=== PATIENT | female | born 1985 | race Asian ===

== ENCOUNTER 2022-01-16 08:59 | Day surgery (SDC) | payer OTHER ==
[~2022-01-16] VITALS: Ht 162.6 cm; Wt 54.9 kg
[~2022-01-16 08:59] MED LIST: LIDOCAINE 2% 100MG/5ML SDV (FOR ANES.) As Ordered ONE; MIDAZOLAM INJ 2MG/2ML VIAL (J2250 PER 1MG) As Ordered ONE; ONDANSETRON 4MG 2ML VIAL As Ordered ONE; dexameTHASONE 4 MG/ML 1ML VIAL (J1100 PER 1MG) As Ordered ONE; fentaNYL 100 MCG/2 ML INJECTION As Ordered ONE; propofoL 200 MG/20 ML VIAL As Ordered ONE
[2022-01-16] MEDS ORDERED: CIPRODEX OTIC SUSP 7.5ML As Ordered ONE (09:02)
[2022-01-16] MEDS ORDERED: SM N0.65 (09:28)
[2022-01-16] MEDS ORDERED: OMEP1CAP73 PO (09:28)
[2022-01-16] MEDS ORDERED: FLUO-96 PO (09:28)
[2022-01-16] MEDS ORDERED: FLON1SPR (09:28)
[2022-01-16] MEDS ORDERED: DOXY100C3 PO (09:28)
[2022-01-16] MEDS ORDERED: HYDR-3363 PO (09:28)
[2022-01-16] MEDS ORDERED: LR 1,000 ML IV SCH ×2 (10:00→10:40)
[2022-01-16] MEDS ORDERED: propofoL 200 MG/20 ML VIAL As Ordered ONE (10:19)
[2022-01-16] MEDS ORDERED: KETOROLAC 60MG 2ML VIAL As Ordered ONE (10:29)
[2022-01-16] MEDS ORDERED: fentaNYL 100 MCG/2 ML INJECTION IV PRN (10:40)
[2022-01-16] MEDS ORDERED: oxyCODONE 5MG TAB PO PRN (10:40)
[2022-01-16] MEDS ORDERED: HYDROMORPHONE HCL 0.5 MG/ 0.5 ML SYRINGE (J1170 PER 1) IV PRN (10:40)
[2022-01-16] MEDS ORDERED: ONDANSETRON 4MG 2ML VIAL IV PRN (10:40)
[2022-01-16] MEDS ORDERED: flumazeniL 0.5 MG/5 ML VIAL As Ordered ONE (10:42)
[2022-01-16 11:55] VITALS: BP 128/74
== END 2022-01-16 12:06 | disposition home or self-care (01) ==
LOC: M SDC 08:59
PROVIDERS: ATTEND Otolaryngology
DX: H69.83 Other specified disorders of Eustachian tube, bilateral (principal); H65.23 Chronic serous otitis media, bilateral; K21.9 Gastro-esophageal reflux disease without esophagitis; F41.9 Anxiety disorder, unspecified; F32.A Depression, unspecified; Z79.899 Other long term (current) drug therapy
CPT/HCPCS: 69436; 81025; J1100; J1885; J2250; J2405; J3010

== ENCOUNTER → 2022-08-08 | Outpatient (CLI) | payer OTHER ==
[~2022-08-08] MED LIST changes: +DOXY100C3 PO; +FLON1SPR; +FLUO-96 PO; +HYDR-3363 PO; -LIDOCAINE 2% 100MG/5ML SDV (FOR ANES.) As Ordered ONE; -MIDAZOLAM INJ 2MG/2ML VIAL (J2250 PER 1MG) As Ordered ONE; +OMEP1CAP73 PO; -ONDANSETRON 4MG 2ML VIAL As Ordered ONE; +SM N0.65; -dexameTHASONE 4 MG/ML 1ML VIAL (J1100 PER 1MG) As Ordered ONE; -fentaNYL 100 MCG/2 ML INJECTION As Ordered ONE; -propofoL 200 MG/20 ML VIAL As Ordered ONE
== END ==
LOC: M RAD 09:01
PROVIDERS: ATTEND Student in an Organized Health Care Education/Training Program
DX: Z30.431 Encounter for routine checking of intrauterine contraceptive device (principal); N83.01 Follicular cyst of right ovary

== ENCOUNTER → 2022-09-27 | Outpatient (CLI) | payer OTHER ==
[~2022-09-27] MED LIST changes: +PROHANCE 279.3MG/ML 15ML VIAL As Ordered ONE
== END ==
LOC: M RAD 14:49
PROVIDERS: ATTEND Student in an Organized Health Care Education/Training Program
DX: R51.9 Headache, unspecified (principal)
CPT/HCPCS: 70544; 70553; A9576

== ENCOUNTER 2022-10-04 09:25 | Day surgery (SDC) | payer OTHER ==
[~2022-10-04] VITALS: Ht 162.6 cm; Wt 56.0 kg
[~2022-10-04 09:25] MED LIST changes: -PROHANCE 279.3MG/ML 15ML VIAL As Ordered ONE
[2022-10-04] MEDS ORDERED: LR 1,000 ML IV SCH (09:50)
[2022-10-04] MEDS ORDERED: CIPRODEX OTIC SUSP 7.5ML As Ordered ONE (11:09)
[2022-10-04] MEDS ORDERED: MIDAZOLAM INJ 2MG/2ML VIAL As Ordered ONE (11:13)
[2022-10-04] MEDS ORDERED: fentaNYL 100 MCG/2 ML INJECTION As Ordered ONE (11:13)
[2022-10-04] MEDS ORDERED: ONDANSETRON 4MG 2ML VIAL As Ordered ONE (11:13)
[2022-10-04] MEDS ORDERED: ACETAMINOPHEN 1000MG 100ML IV BAG As Ordered ONE (11:13)
[2022-10-04] MEDS ORDERED: LIDOCAINE 2% 100MG/5ML SDV (FOR ANES.) As Ordered ONE (11:14)
[2022-10-04] MEDS ORDERED: propofoL 200 MG/20 ML VIAL As Ordered ONE (11:14)
[2022-10-04] MEDS ORDERED: ePHEDrine SULFATE 25 MG/5 ML(5MG/ML) SYRINGE As Ordered ONE (11:47)
[2022-10-04] MEDS ORDERED: PHENYLEPHRINE 0.5% NASAL SPRAY 15 ML As Ordered ONE (11:51)
[2022-10-04] MEDS ORDERED: fentaNYL 100 MCG/2 ML INJECTION IV PRN (12:05)
[2022-10-04] MEDS ORDERED: ONDANSETRON 4MG 2ML VIAL IV PRN (12:05)
[2022-10-04] MEDS ORDERED: oxyCODONE 5MG TAB PO PRN (12:05)
[2022-10-04] MEDS ORDERED: ACETAMINOPHEN 325MG/10.15ML UDC PO ONE (12:55)
[2022-10-04 13:55] VITALS: BP 130/80
== END 2022-10-04 14:00 | disposition home or self-care (01) ==
LOC: M SDC 09:25
PROVIDERS: ATTEND Otolaryngology
DX: H68.102 Unspecified obstruction of Eustachian tube, left ear (principal); H92.02 Otalgia, left ear
CPT/HCPCS: 69424; 81025; J0131; J1100; J2250; J2405; J3010

== ENCOUNTER 2022-12-25 07:49 | Emergency (ER) | payer OTHER ==
[~2022-12-25] VITALS: Ht 162.6 cm; Wt 52.0 kg
[2022-12-25] MEDS ORDERED: FLUO40CA (07:56)
[2022-12-25] MEDS ORDERED: ALLE12TA31 PO (07:56)
[2022-12-25 08:46] LABS: BASO # 0.1 10^3/uL (0.0-0.2); BASO % 0.6 % (0.0-1.0); EOS # 0.1 10^3/uL (0.0-0.5); EOS % 1.3 % (0.0-3.0); HEMATOCRIT 42.5 % (36.0-47.0); HEMOGLOBIN 14.6 g/dl (12.0-15.5); LYMPH # 2.4 10^3/uL (1.5-5.0); MEAN CORPUSCULAR HEMOGLOBIN 31.6 pg (27.0-33.0); MEAN CORPUSCULAR HGB CONC 34.4 g/dl (32.0-36.5); MONO # 0.3 10^3/uL (0.0-0.8); MONO % 3.6 % (2.0-8.0); NEUTROPHILS # 5.7 10^3/uL (1.5-8.5); NEUTROPHILS % 66.2 % (36.0-66.0); PLATELET COUNT, AUTOMATED 269 10^3/uL (150-450); RED BLOOD COUNT 4.62 10^6/uL (4.00-5.40); WHITE BLOOD COUNT 8.6 10^3/uL (4.0-10.0)
[2022-12-25 09:09] LABS: LIPASE 32 U/L (12-53)
[2022-12-25 09:11] LABS: ALBUMIN 4.2 G/DL (3.2-5.2); ALKALINE PHOSPHATASE 85 U/L (46-116); ALT/SGPT 16 U/L (7.0-40); AST/SGOT 8 U/L (<34); BILIRUBIN,DIRECT 0.3 MG/DL (<0.4); BLOOD UREA NITROGEN 9 MG/DL (9-23); CALCIUM LEVEL 9.5 MG/DL (8.5-10.1); CARBON DIOXIDE LEVEL 27 MMOL/L (20-31); CHLORIDE LEVEL 101 MMOL/L (98-107); CREATININE FOR GFR 0.69 MG/DL (0.55-1.30); GLOMERULAR FILTRATION RATE > 60.0 (>60); GLUCOSE, FASTING 88 MG/DL (60-100); POTASSIUM SERUM 4.4 MMOL/L (3.5-5.1); SODIUM LEVEL 136 MMOL/L (136-145)
[2022-12-25 09:13] LABS: HCG, SERUM QUALITATIVE NEGATIVE (NEGATIVE)
[2022-12-25] MEDS ORDERED: ACETAMINOPHEN 500 MG TAB PO ONE (11:35)
[2022-12-25] MEDS ORDERED: NS 1,000 ML IV ONE (11:45)
[2022-12-25] MEDS ORDERED: ONDANSETRON 4MG 2ML VIAL IV ONE (11:45)
[2022-12-25] MEDS ORDERED: ISOVUE-370 76% 100ML VIAL As Ordered ONE (12:04)
[2022-12-25 12:13] VITALS: BP 128/79; TEMP 97; O2SAT 100
[2022-12-25] MEDS ORDERED: ONDA4TAB6 PO (13:50)
== END 2022-12-25 14:25 | disposition home or self-care (01) ==
LOC: M ED 07:49
DX: R11.2 Nausea with vomiting, unspecified (principal); F41.9 Anxiety disorder, unspecified; F32.A Depression, unspecified
CPT/HCPCS: 74177; 80048; 80076; 81001; 83690; 84703; 85025; 87086; 96361; 96374; 99284; J2405; Q9967

== ENCOUNTER → 2023-03-20 | Outpatient (REF) ==
[~2023-03-20] MED LIST changes: +ALLE12TA31 PO; +FLUO40CA; +ONDA4TAB6 PO
[2023-03-21 07:09] LABS: HERPES ZOSTER, VARICELLA IgG 1650 index (Immune >165); RUBEOLA IgG ANTIBODY >300.0 AU/mL (Immune >16.4)
== END ==
LOC: M LAB 12:18
PROVIDERS: ATTEND Nurse Practitioner Adult Health
DX: Z00.00 Encounter for general adult medical examination without abnormal findings (principal)

== ENCOUNTER → 2023-03-22 | Outpatient (CLI) | payer OTHER ==
[~2023-03-22] MED LIST changes: +PROHANCE 279.3MG/ML 15ML VIAL As Ordered ONE
== END ==
LOC: M RAD 12:54
PROVIDERS: ATTEND Student in an Organized Health Care Education/Training Program
DX: R93.5 Abnormal findings on diagnostic imaging of other abdominal regions, including retroperitoneum (principal)
CPT/HCPCS: 74183; A9576

== ENCOUNTER 2023-09-16 08:19 | Day surgery (SDC) | payer OTHER ==
[~2023-09-16] VITALS: Ht 162.6 cm; Wt 57.2 kg
[~2023-09-16 08:19] MED LIST changes: -PROHANCE 279.3MG/ML 15ML VIAL As Ordered ONE
[2023-09-16] MEDS ORDERED: LR 1,000 ML IV SCH ×2 (08:45→12:05)
[2023-09-16] MEDS: SCOPOLAMINE 1MG TRANSDERMAL PATCH TOP ONE (09:36)
[2023-09-16] MEDS ORDERED: ONDANSETRON 4MG 2ML VIAL IV ONE (10:30)
[2023-09-16] MEDS ORDERED: fentaNYL 100 MCG/2 ML INJECTION As Ordered ONE (10:42)
[2023-09-16] MEDS ORDERED: MIDAZOLAM INJ 2MG/2ML VIAL As Ordered ONE (10:42)
[2023-09-16] MEDS ORDERED: LIDOCAINE 2% 100MG/5ML SDV (FOR ANES.) As Ordered ONE (10:42)
[2023-09-16] MEDS ORDERED: propofoL 200 MG/20 ML VIAL As Ordered ONE (10:42)
[2023-09-16] MEDS ORDERED: ONDANSETRON 4MG 2ML VIAL As Ordered ONE (10:42)
[2023-09-16] MEDS ORDERED: ACETAMINOPHEN 1000MG 100ML IV BAG As Ordered ONE (10:42)
[2023-09-16] MEDS ORDERED: ePHEDrine SULFATE 25 MG/5 ML(5MG/ML) SYRINGE As Ordered ONE (11:53)
[2023-09-16] MEDS ORDERED: METOCLOPRAMIDE INJ 10MG/2ML VIAL As Ordered ONE (11:55)
[2023-09-16] MEDS: CIPRODEX OTIC SUSP 7.5ML As Ordered ONE (11:58)
[2023-09-16] MEDS: OXYMETAZOLINE 0.05% NASAL SPRAY (AFRIN) As Ordered ONE (11:58)
[2023-09-16] MEDS ORDERED: fentaNYL 100 MCG/2 ML INJECTION IV PRN (12:05)
[2023-09-16] MEDS ORDERED: ONDANSETRON 4MG 2ML VIAL IV PRN (12:05)
[2023-09-16] MEDS ORDERED: HYDROMORPHONE HCL 0.5 MG/ 0.5 ML SYRINGE IV PRN (12:05)
[2023-09-16] MEDS: oxyCODONE 5MG TAB PO PRN (12:46)
[2023-09-16 13:00] VITALS: BP 123/73; TEMP 97.7; O2SAT 99
== END 2023-09-16 13:28 | disposition home or self-care (01) ==
LOC: M SDC 08:19
PROVIDERS: ATTEND Otolaryngology
DX: H69.93 Unspecified Eustachian tube disorder, bilateral (principal); F41.9 Anxiety disorder, unspecified; Z79.899 Other long term (current) drug therapy
CPT/HCPCS: 69436; 81025; J0131; J1100; J2250; J2405; J2765; J3010

== ENCOUNTER 2024-08-20 09:49 | Day surgery (SDC) | payer OTHER ==
[~2024-08-20] VITALS: Ht 162.6 cm; Wt 60.4 kg
[~2024-08-20 09:49] MED LIST changes: -FLUO40CA; +FLUO40CA PO; +ONDA-282 PO; -ONDA4TAB6 PO
[2024-08-20] MEDS ORDERED: NS (Normal Saline) 0.9% 1,000 ML IV SCH ×2 (09:55→13:15)
[2024-08-20] MEDS ORDERED: SCOPOLAMINE 1MG TRANSDERMAL PATCH TOP ONE (10:55)
[2024-08-20] MEDS ORDERED: MIDAZOLAM INJ 2MG/2ML VIAL As Ordered ONE (11:39)
[2024-08-20] MEDS ORDERED: fentaNYL 100 MCG/2 ML INJECTION As Ordered ONE (11:39)
[2024-08-20] MEDS ORDERED: ACETAMINOPHEN 1000MG/100ML IV BAG As Ordered ONE (11:40)
[2024-08-20] MEDS ORDERED: ONDANSETRON 4MG 2ML VIAL As Ordered ONE (11:40)
[2024-08-20] MEDS ORDERED: propofoL 200 MG/20 ML VIAL As Ordered ONE (11:40)
[2024-08-20] MEDS ORDERED: LIDOCAINE 2% 100MG/5ML SDV (FOR ANES.) As Ordered ONE (11:40)
[2024-08-20] MEDS: PHENYLEPHRINE REG/STR 0.5% NASAL SPRAY 15 ML As Ordered ONE (12:11)
[2024-08-20] MEDS: EPINEPHrine INJ 1 MG/ML 1ML AMP As Ordered ONE (12:30)
[2024-08-20] MEDS: EPINEPHrine 1MG/ML INJ 30ML MD-VIAL As Ordered ONE (12:47)
[2024-08-20] MEDS: CIPRODEX OTIC SUSP 7.5ML As Ordered ONE (13:00)
[2024-08-20] MEDS ORDERED: ONDANSETRON 4MG 2ML VIAL IV PRN (13:15)
[2024-08-20] MEDS ORDERED: oxyCODONE 5MG TAB PO PRN (13:15)
[2024-08-20] MEDS ORDERED: HYDROMORPHONE HCL 0.5 MG/ 0.5 ML SYRINGE IV PRN (13:15)
[2024-08-20] MEDS ORDERED: fentaNYL 100 MCG/2 ML INJECTION IV PRN (13:15)
[2024-08-20 14:20] VITALS: BP 140/82; TEMP 97.1; O2SAT 100
== END 2024-08-20 14:24 | disposition home or self-care (01) ==
LOC: M SDC 09:49
PROVIDERS: ATTEND Otolaryngology
DX: H69.93 Unspecified Eustachian tube disorder, bilateral (principal); F41.9 Anxiety disorder, unspecified
CPT/HCPCS: 69436; 69706; 81025; J0131; J0171; J1100; J2250; J2405; J3010

== ENCOUNTER → 2025-05-03 | Outpatient (CLI) | payer OTHER ==
[~2025-05-03] MED LIST changes: +ISOVUE-370 76% 100 ML VIAL ONE
== END ==
LOC: M PLAIMG 08:19
PROVIDERS: ATTEND Otolaryngology
DX: R22.1 Localized swelling, mass and lump, neck (principal)

== ENCOUNTER → 2025-05-13 | Outpatient (CLI) | payer OTHER | LOC: M PLAIMG 07:28 | PROVIDERS: ATTEND Otolaryngology | DX: R22.1 Localized swelling, mass and lump, neck (principal) | CPT/HCPCS: 70491; Q9967 ==